=== PATIENT | female | born 1945 | race Caucasian/White ===

== ENCOUNTER 2017-07-25 17:00 | Emergency (ER) | payer MEDICARE, BC ==
--- NOTE | 2017-07-25 17:40 | EDM.PDOCBH ---
<Fox Cohen - Last Filed: 07/25/17 17:51> ED HPI GENERAL MEDICAL PROBLEM - General Chief Complaint: Gastrointestinal Problem Stated Complaint: SENT FROM CLINIC Time Seen by Provider: 07/25/17 17:30 Source of Information: Reports: Family, Provider History Limitations: Reports: Altered Mental Status (Chronic dementia, confusion ) - History of Present Illness INITIAL COMMENTS - FREE TEXT/NARRATIVE: 72-year-old female suffering from chronic dementia, worsening confusion and agitation was in the clinic when she became very angry at her , was uncooperative and her physician felt she was a danger to herself or her family. He sent her over to the emergency room to get her assessed physically to hopefully get her admitted to a senior behavioral unit for stabilization. The patient herself is now calmed down, is very cooperative but communicates with short bursts of attention, frequently changing the subject and obviously having a hard time staying on task. Onset: Unknown/Unsure Severity: Moderate - Related Data Allergies Allergy/AdvReac Type Severity Reaction Status Date / Time neomycin [Neomycin] Allergy Rash Verified 01/31/16 21:41 niacin Allergy Other Verified 07/25/17 17:25 shellfish derived Allergy Hives Verified 01/31/16 21:41 cholestyramine AdvReac Nausea Verified 01/31/16 21:41 [Cholestyramine] prednisone AdvReac Hallucinati Verified 01/31/16 21:41 ons [id number] Reductase AdvReac Muscle Verified 01/31/16 21:41 Inhibitor Aches COCAINE Allergy Other Uncoded 07/25/17 17:25 Home Meds: Home Meds Aspirin [Ecotrin] 325 mg PO BEDTIME 10/20/13 [History] Clopidogrel Bisulfate [Clopidogrel] 75 mg PO QAM 10/20/13 [History] Isosorbide Mononitrate [Imdur] 30 mg PO QAM 10/20/13 [History] Metoprolol Tartrate [Lopressor] 25 mg PO BID 10/20/13 [History] Multivitamin with Minerals [Multiple Vitamin] 1 tab PO DAILY 10/20/13 [History] Nitroglycerin [Nitrostat] 0.4 mg SL ASDIRECTED PRN 10/20/13 [History] Pantoprazole Sodium 40 mg PO BEDTIME 10/20/13 [History] amLODIPine Besylate [Amlodipine Besylate] 5 mg PO QAM 10/20/13 [History] *Chlorphenniramine 4 mg PO ASDIRECTED PRN 07/25/17 [History] Cholecalciferol (Vitamin D3) [Vitamin D] 1,000 units PO ASDIRECTED 07/25/17 [ History] Donepezil [Aricept] 5 mg PO BID 07/25/17 [History] Hydrocodone/Acetaminophen [[place] 5-325] 0.5 mg PO ASDIRECTED PRN 07/25/17 [ History] Past Medical History HEENT History: Reports: Impaired Vision Cardiovascular History: Reports: Angina, CAD, High Cholesterol, Hypertension, Stents Musculoskeletal History: Reports: Arthritis, Other (See Below) Other Musculoskeletal History: shoulder pain Neurological History: Reports: Other (See Below) Other Neuro History: "memory going" - Past Surgical History Cardiovascular Surgical History: Reports: Coronary Artery Stent Female Surgical History: Reports: Tubal Ligation Musculoskeletal Surgical History: Reports: Shoulder Surgery Social & Family History - Tobacco Use Smoking Status *Q: Former Smoker Years of Tobacco use: 50 Packs/Tins Daily: 1 Used Tobacco, but Quit: Yes Month Tobacco Last Used: 2.5 years Second Hand Smoke Exposure: No - Alcohol Use Days Per Week of Alcohol Use: 0 - Recreational Drug Use Recreational Drug Use: No ED ROS GENERAL - Review of Systems Review Of Systems: Unable To Obtain ED EXAM, BEHAVIORAL HEALTH - Physical Exam Exam: See Below Exam Limited By: No Limitations General Appearance: Alert, No Apparent Distress Eye Exam: Bilateral Eye: EOMI Respiratory/Chest: No Respiratory Distress, Lungs Clear Cardiovascular: Regular Rate, Rhythm GI/Abdominal: Soft, Non-Tender Extremities: Other (Patient has a few excoriations and bruises on the backs of her hands, otherwise no integumentary injuries or findings) Neurological: Alert, Normal Mood/Affect Psychiatric: Alert, Normal Affect, Normal Mood. No: Restless, Tearful, Agitated COURSE, BEHAVIORAL HEALTH COMP - Course Vital Signs: Last Vital Signs Temp 35.6 C 07/25/17 19:04 Pulse 60 07/25/17 19:04 Resp 16 07/25/17 19:04 BP 157/60 H 07/25/17 19:04 Pulse Ox 97 07/25/17 19:04 Orders, Labs, Meds: Active Orders 24 hr Category Date Time Status Head wo Cont [CT] Stat Exams 07/25/17 19:43 Taken CULTURE URINE [RM] Stat Lab 07/25/17 18:54 Received Sodium Chloride 0.9% [Normal Saline] 1,000 ml Med 07/25/17 19:00 Active IV ASDIRECTED Medication Orders Sodium Chloride (Normal Saline) 1,000 mls @ 999 mls/hr IV ASDIRECTED MATEO Last Admin: 07/25/17 19:01 Dose: 999 mls/hr Laboratory Tests 07/25/17 07/25/17 07/25/17 Range/Units 17:45 17:45 18:00 WBC 8.1 (4.5-11.0) K/uL RBC 3.95 (3.30-5.50) M/uL Hgb 11.8 L (12.0-15.0) g/dL Hct 36.8 (36.0-48.0) % MCV 93 (80-98) fL MCH 30 (27-31) pg MCHC 32 (32-36) % Plt Count 314 (150-400) K/uL Neut % (Auto) 64 (36-66) % Lymph % (Auto) 26 (24-44) % [place] % (Auto) 8 H (2-6) % Eos % (Auto) 2 (2-4) % Baso % (Auto) 1 (0-1) % Sodium 141 (140-148) mmol/L Potassium 4.2 (3.6-5.2) mmol/L Chloride 104 (100-108) mmol/L Carbon Dioxide 31 (21-32) mmol/L Anion Gap 6.2 (5.0-14.0) mmol/L BUN 19 H (7-18) mg/dL Creatinine 1.2 H (0.6-1.0) mg/dL Est Cr Clr Drug Dosing 37.01 mL/min Estimated GFR (MDRD) 44 L (>60) Glucose 103 (74-106) mg/dL Calcium 9.2 (8.5-10.1) mg/dL Total Bilirubin 0.2 (0.2-1.0) mg/dL AST 17 (15-37) U/L ALT 22 (12-78) U/L Alkaline Phosphatase 97 (46-116) U/L Total Protein 7.5 (6.4-8.2) g/dL Albumin 3.8 (3.4-5.0) g/dL Globulin 3.7 H (2.3-3.5) g/dL Albumin/Globulin Ratio 1.0 L (1.2-2.2) TSH, Ultra Sensitive 1.157 (0.358-3.740) uIU/mL Urine Color Yellow Urine Appearance Cloudy Urine pH 6.0 (4.5-8.0) Ur Specific [place] 1.020 (1.008-1.030) Urine Protein Negative (NEGATIVE) mg/dL Urine Glucose (UA) Normal (NEGATIVE) mg/dL Urine Ketones Negative (NEGATIVE) mg/dL Urine Occult Blood Negative (NEGATIVE) Urine Nitrite Negative (NEGATIVE) Urine Bilirubin Negative (NEGATIVE) Urine Urobilinogen Normal (NORMAL) mg/dL Ur Leukocyte Esterase Large (NEGATIVE) Urine RBC 0-5 (0-5) Urine WBC 10-20 H (0-5) Ur Epithelial Cells Moderate Amorphous Sediment Few Urine Bacteria Few Urine Mucus Not seen Medications Generic Name Dose Route Start Last Admin Trade Name Freq PRN Reason Stop Dose Admin Sodium Chloride 1,000 mls @ 999 mls/hr 07/25/17 19:00 07/25/17 19:01 Normal Saline IV 999 mls/hr ASDIRECTED MATEO Administration Discontinued Medications Generic Name Dose Route Start Last Admin Trade Name Freq PRN Reason Stop Dose Admin Ceftriaxone Sodium 1 gm/ 50 mls @ 100 mls/hr 07/25/17 18:46 07/25/17 19:02 Sodium Chloride IV 07/25/17 19:15 100 mls/hr ONETIME ONE Administration Re-Assessment/Re-Exam: CBC, CMP, TSH and UA were obtained. Departure - Departure Disposition: DC/Tfer to [facility]Unit [facility] Clinical Impression: UTI (urinary tract infection), Chronic dementia with behavioral disturbance - Discharge Information Referrals: Fox Cooper MD [Primary Care Provider] - Forms: ED Department Discharge Care Plan Goals: pt will be trans[facility] the [facility]. - My Orders Last 24 Hours: My Active Orders 07/25/17 18:54 CULTURE URINE [RM] Stat 07/25/17 19:00 Sodium Chloride 0.9% [Normal Saline] 1,000 ml IV ASDIRECTED 07/25/17 19:43 Head wo Cont [CT] Stat - Assessment/Plan Last 24 Hours: My Active Orders 07/25/17 18:54 CULTURE URINE [RM] Stat 07/25/17 19:00 Sodium Chloride 0.9% [Normal Saline] 1,000 ml IV ASDIRECTED 07/25/17 19:43 Head wo Cont [CT] Stat <Martha Mann - Last Filed: 07/25/17 22:29> COURSE, BEHAVIORAL HEALTH COMP - Course Medical Clearance: 07/25/17 22:09 pt has a history of chronic dementia and has been seen By Dr Hunt many times. She is on aricept. She had a Cat scan of the head which showed marked volume loss and dilated ventricles. She has been cared for at home but this has been an increased problem. 07/25/17 22:18 Departure - Departure Time of Disposition: 22:28 Condition: Fair
[2017-07-25] MEDS ORDERED: cefTRIAXone 1 GM in Sodium Chloride 0.9% 50 ML IV ONE (18:46)
[2017-07-25] MEDS ORDERED: Sodium Chloride 0.9% 1,000 ML IV SCH (19:00)
[2017-07-25 22:53] VITALS: BP 97/74
== END 2017-07-25 23:45 ==
LOC: JP.ED 17:00
DX: N39.0 Urinary tract infection, site not specified (principal); F03.91 Unspecified dementia, unspecified severity, with behavioral disturbance; I10 Essential (primary) hypertension; E78.00 Pure hypercholesterolemia, unspecified; Z88.1 Allergy status to other antibiotic agents; Z88.8 Allergy status to other drugs, medicaments and biological substances; Z88.5 Allergy status to narcotic agent; Z91.013 Allergy to seafood; Z79.82 Long term (current) use of aspirin; Z87.891 Personal history of nicotine dependence
CPT/HCPCS: 36415; 70450; 80053; 81001; 84443; 85025; 87086; 96365; 99285; J0696; J7040; J7050; 99284

== ENCOUNTER 2019-02-28 12:30 | Emergency (ER) | payer MEDICARE, BC ==
[2019-02-28] MEDS ORDERED: Sodium Chloride 0.9% 10 ML Syringe FLUSH PRN (12:54)
--- NOTE | 2019-02-28 12:59 | EDM.PDOC ---
ED HPI GENERAL MEDICAL PROBLEM - General Chief Complaint: Neurological Problem Stated Complaint: [facility] Time Seen by Provider: 02/28/19 12:52 Source of Information: Reports: Patient, EMS - History of Present Illness INITIAL COMMENTS - FREE TEXT/NARRATIVE: patient with dementia Comes in [facility] for confusion She was in the shower, and per had a near syncopal episode Tried to get her up, she almost fell down again. Due to dementia, difficult to assess her neurologically. She isn't oriented to place or time. Onset: Today Location: Reports: Generalized Denies Pain Score (Numeric/FACES): 0 - Related Data Allergies Allergy/AdvReac Type Severity Reaction Status Date / Time cocaine Allergy Other Verified 02/28/19 14:46 neomycin [Neomycin] Allergy Rash Verified 02/28/19 14:46 niacin Allergy Other Verified 02/28/19 14:46 shellfish derived Allergy Hives Verified 02/28/19 14:46 cholestyramine AdvReac Nausea Verified 02/28/19 14:46 [Cholestyramine] prednisone AdvReac Hallucinati Verified 02/28/19 14:46 ons [id number]-Ggm Reductase AdvReac Muscle Verified 02/28/19 14:46 Inhibitor Aches Home Meds: Home Meds Clopidogrel Bisulfate [Clopidogrel] 75 mg PO QAM 10/20/13 [History] Isosorbide Mononitrate [Imdur] 30 mg PO QAM 10/20/13 [History] Metoprolol Tartrate [Lopressor] 25 mg PO BID 10/20/13 [History] Multivitamin with Minerals [Multiple Vitamin] 1 tab PO DAILY 10/20/13 [History] Nitroglycerin [Nitrostat] 0.4 mg SL ASDIRECTED PRN 10/20/13 [History] Pantoprazole Sodium 40 mg PO BEDTIME 10/20/13 [History] amLODIPine Besylate [Amlodipine Besylate] 5 mg PO QAM 10/20/13 [History] *Chlorphenniramine 4 mg PO ASDIRECTED PRN 07/25/17 [History] Cholecalciferol (Vitamin D3) [Vitamin D] 1,000 units PO ASDIRECTED 07/25/17 [ History] Donepezil [Aricept] 5 mg PO BID 07/25/17 [History] Aspirin [Children's Aspirin] 1 tab PO DAILY 02/18/18 [History] Memantine HCl 1 tab PO BID 02/18/18 [History] Past Medical History HEENT History: Reports: Cataract, Glaucoma, Impaired Vision Cardiovascular History: Reports: Angina, CAD, High Cholesterol, Hypertension, Stents Musculoskeletal History: Reports: Arthritis, Other (See Below) Other Musculoskeletal History: shoulder pain Neurological History: Reports: Other (See Below) Other Neuro History: Dementia Other Psychiatric History: COGNITIVE IMPAIRMENT, HYPERKINESIS - Past Surgical History HEENT Surgical History: Reports: Cataract Surgery Cardiovascular Surgical History: Reports: Coronary Artery Stent Female Surgical History: Reports: Tubal Ligation Musculoskeletal Surgical History: Reports: Shoulder Surgery ED ROS GENERAL - Review of Systems Review Of Systems: Unable To Obtain (she has dementia) ED EXAM, GENERAL - Physical Exam Exam: See Below Exam Limited By: Other (confusion, dementia) General Appearance: Alert Eye Exam: Bilateral Eye: EOMI, PERRL Ears: Normal External Exam, Normal Canal Ear Exam: Bilateral Ear: Other (pupils are pinpoint) Nose: Normal Inspection Throat/Mouth: Normal Inspection, Normal Lips Neck: Normal Inspection, Supple, Non-Tender, Full Range of Motion Respiratory/Chest: No Respiratory Distress, Lungs Clear Cardiovascular: Systolic Murmur GI/Abdominal: Normal Bowel Sounds, Soft, Non-Tender Extremities: Normal Inspection, Normal Range of Motion Neurological: Disoriented, Slow to Respond, Other ( states she is slurring her speech more than normal) Skin Exam: Warm, Dry, Intact Course - Vital Signs Last Recorded V/S: Last Vital Signs Temp 96.2 F 02/28/19 12:57 Pulse 55 L 02/28/19 12:57 Resp 16 02/28/19 12:57 BP 127/61 02/28/19 12:57 Pulse Ox 98 02/28/19 12:57 - Orders/Labs/Meds Orders: Active Orders 24 hr Category Date Time Status EKG Documentation Completion [RC] ASDIRECTED Care 02/28/19 12:59 Active Peripheral IV Care [RC] . DIRECTED Care 02/28/19 12:54 Active Peripheral IV Insertion Adult [OM.PC] Stat Oth 02/28/19 12:54 Ordered EKG 12 Lead [EK] Routine Ther 02/28/19 12:58 Ordered Labs: Laboratory Tests 02/28/19 02/28/19 02/28/19 Range/Units 13:00 13:00 14:44 WBC 8.1 (4.5-11.0) K/uL RBC 3.65 (3.30-5.50) M/uL Hgb 10.7 L (12.0-15.0) g/dL Hct 34.5 L (36.0-48.0) % MCV 95 (80-98) fL MCH 29 (27-31) pg MCHC 31 L (32-36) % Plt Count 269 (150-400) K/uL Neut % (Auto) 68 H (36-66) % Lymph % (Auto) 21 L (24-44) % [place] % (Auto) 8 H (2-6) % Eos % (Auto) 3 (2-4) % Baso % (Auto) 1 (0-1) % Sodium 141 (140-148) mmol/L Potassium 4.1 (3.6-5.2) mmol/L Chloride 105 (100-108) mmol/L Carbon Dioxide 28 (21-32) mmol/L Anion Gap 8.5 (5.0-14.0) mmol/L BUN 21 H (7-18) mg/dL Creatinine 1.6 H (0.6-1.0) mg/dL Est Cr Clr Drug Dosing TNP Estimated GFR (MDRD) 31 L (>60) Glucose 118 H (74-106) mg/dL Calcium 9.2 (8.5-10.1) mg/dL Total Bilirubin 0.2 (0.2-1.0) mg/dL AST 17 (15-37) U/L ALT 23 (12-78) U/L Alkaline Phosphatase 113 (46-116) U/L Total Protein 7.2 (6.4-8.2) g/dL Albumin 3.2 L (3.4-5.0) g/dL Globulin 4.0 H (2.3-3.5) g/dL Albumin/Globulin Ratio 0.8 L (1.2-2.2) Urine Color Yellow Urine Appearance Clear Urine pH 5.0 (4.5-8.0) Ur Specific [place] [address] 1.015 (1.008-1.030) Urine Protein Negative (NEGATIVE) mg/dL Urine Glucose (UA) Normal (NEGATIVE) mg/dL Urine Ketones Negative (NEGATIVE) mg/dL Urine Occult Blood Negative (NEGATIVE) Urine Nitrite Negative (NEGATIVE) Urine Bilirubin Negative (NEGATIVE) Urine Urobilinogen Normal (NORMAL) mg/dL Ur Leukocyte Esterase Moderate (NEGATIVE) Urine RBC Not seen (0-5) Urine WBC 30-40 H (0-5) Ur Epithelial Cells Moderate Amorphous Sediment Few Urine Bacteria Few Urine Mucus Few Meds: Medications Discontinued Medications Generic Name Dose Route Start Last Admin Trade Name Freq PRN Reason Stop Dose Admin Acetaminophen 1,000 mg 02/28/19 13:04 Tylenol Extra Strength PO Q12H PRN Pain Sodium Chloride 10 ml 02/28/19 12:54 Saline Flush FLUSH ASDIRECTED PRN Keep Vein Open Trimethoprim/Sulfamethoxazole 1 tab 02/28/19 14:59 02/28/19 15:10 Septra Ds PO 02/28/19 15:00 1 tab ONETIME ONE Administration - Re-Assessments/Exams Free Text/Narrative Re-Assessment/Exam: 02/28/19 17:32 reviewed labs, ct Will treat for UTI Departure - Departure Time of Disposition: 14:59 Disposition: Home, Self-Care 01 Condition: Fair Clinical Impression: Cystitis Clinical Impression: (Ruled Out): Acute cyclitis - Discharge Information *PRESCRIPTION DRUG MONITORING PROGRAM REVIEWED*: Not Applicable *COPY OF PRESCRIPTION DRUG MONITORING REPORT IN PATIENT SHIRA: Not Applicable Instructions: Altered Mental Status, Urinary Tract Infection, Adult, Easy-to- Read Referrals: Fox Cooper MD [Primary Care Provider] - Forms: ED Department Discharge Additional Instructions: Keep hydrated Bactrim (antibiotic 2 times daily) Follow up with primary care this week Return with worsening of symptoms Call with questions. - Problem List & Annotations (1) Cystitis SNOMED Code(s): 99179993 Code(s): N30.90 - CYSTITIS, UNSPECIFIED WITHOUT HEMATURIA Status: Acute Priority: Medium - My Orders Last 24 Hours: My Active Orders 02/28/19 12:54 Peripheral IV Care [RC] . DIRECTED Peripheral IV Insertion Adult [OM.PC] Stat 02/28/19 12:58 EKG 12 Lead [EK] Routine 02/28/19 12:59 EKG Documentation Completion [RC] ASDIRECTED - Assessment/Plan Last 24 Hours: My Active Orders 02/28/19 12:54 Peripheral IV Care [RC] . DIRECTED Peripheral IV Insertion Adult [OM.PC] Stat 02/28/19 12:58 EKG 12 Lead [EK] Routine 02/28/19 12:59 EKG Documentation Completion [RC] ASDIRECTED
[2019-02-28] MEDS ORDERED: Acetaminophen 500 MG Tab PO PRN (13:04)
[2019-02-28 13:06] VITALS: BP 127/61; PULSE 55
--- NOTE | 2019-02-28 13:50 | CRLCT ---
INDICATION: Slurred speech. Confusion. TECHNIQUE: Head CT without contrast. COMPARISON: 07/25/2017. FINDINGS: CSF spaces: Within normal limits for age. Brain parenchyma and extra-axial spaces: There is diffuse cerebral atrophy. There are nonspecific low attenuation white matter changes consistent with chronic microvascular disease. No sign of mass, hemorrhage, or midline shift. Skull base and calvarium: The visualized paranasal sinuses and mastoid air cells demonstrate no acute or significant findings. The visualized orbits are grossly unremarkable. No skull fractures. IMPRESSION: Stable age-related changes.No acute abnormality and no change from the prior exam. Dictated by Norris Munoz MD @ 02/28/2019 1:49:01 PM Please note that all CT scans at this facility use dose modulation, iterative reconstruction, and/or weight-based dosing when appropriate to reduce radiation dose to as low as reasonably achievable. Dictated by: Norris Munoz MD @ 02/28/2019 13:49:06 (Electronically Signed)
[2019-02-28] MEDS ORDERED: Sulfamethoxazole/Trimethoprim 800-160 MG Tab PO ONE (14:59)
== END 2019-02-28 15:13 | disposition home or self-care (01) ==
LOC: JP.ED 12:30
DX: N30.90 Cystitis, unspecified without hematuria (principal); F03.90 Unspecified dementia, unspecified severity, without behavioral disturbance, psychotic disturbance, mood disturbance, and anxiety; R41.0 Disorientation, unspecified; I25.10 Atherosclerotic heart disease of native coronary artery without angina pectoris; I10 Essential (primary) hypertension; M19.90 Unspecified osteoarthritis, unspecified site; Z88.8 Allergy status to other drugs, medicaments and biological substances; Z88.1 Allergy status to other antibiotic agents; Z91.013 Allergy to seafood; Z79.02 Long term (current) use of antithrombotics/antiplatelets; Z79.811 Long term (current) use of aromatase inhibitors; Z79.899 Other long term (current) drug therapy; Z79.82 Long term (current) use of aspirin; Z79.891 Long term (current) use of opiate analgesic; Z79.84 Long term (current) use of oral hypoglycemic drugs
CPT/HCPCS: 36415; 70450; 80053; 81001; 85025; 87086; 93005; 99284; A9270

== ENCOUNTER 2019-06-24 10:38 | Emergency (ER) | payer MEDICARE, BC ==
[2019-06-24 11:05] VITALS: BP 118/53; PULSE 56
[2019-06-24] MEDS ORDERED: Sodium Chloride 0.9% 1,000 ML IV SCH ×2 (11:15→13:30)
--- NOTE | 2019-06-24 11:20 | EDM.PDOC ---
ED HPI GENERAL MEDICAL PROBLEM - General Chief Complaint: Neurological Problem Stated Complaint: MEDICAL VIA NORTH Time Seen by Provider: 06/24/19 11:14 Source of Information: Reports: Patient History Limitations: Reports: No Limitations - History of Present Illness INITIAL COMMENTS - FREE TEXT/NARRATIVE: pt had an episode this morning of not responding for about 5 minutes. She has done that twice in the past and each time she had a UTI. The most recent one was 1 month ago. She has been off of antibiotics for 2 weeks at this point. Onset: Today, Sudden Duration: Hour(s): Location: Reports: Generalized Associated Symptoms: Reports: Other (pt did have a episode of diarrhea lst nite after they went out to eat. ) - Related Data Allergies Allergy/AdvReac Type Severity Reaction Status Date / Time cocaine Allergy Other Verified 06/24/19 10:45 neomycin [Neomycin] Allergy Rash Verified 06/24/19 10:45 niacin Allergy Other Verified 06/24/19 10:45 shellfish derived Allergy Hives Verified 06/24/19 10:45 cholestyramine AdvReac Nausea Verified 06/24/19 10:45 [Cholestyramine] prednisone AdvReac Hallucinati Verified 06/24/19 10:45 ons Cgusosj-[id number]-Mlf Reductase AdvReac Muscle Verified 06/24/19 10:45 Inhibitor Aches Home Meds: Home Meds Clopidogrel Bisulfate [Clopidogrel] 75 mg PO QAM 10/20/13 [History] Isosorbide Mononitrate [Imdur] 30 mg PO QAM 10/20/13 [History] Metoprolol Tartrate [Lopressor] 25 mg PO BID 10/20/13 [History] Multivitamin with Minerals [Multiple Vitamin] 1 tab PO DAILY 10/20/13 [History] Nitroglycerin [Nitrostat] 0.4 mg SL ASDIRECTED PRN 10/20/13 [History] Pantoprazole Sodium 40 mg PO BEDTIME 10/20/13 [History] amLODIPine Besylate [Amlodipine Besylate] 5 mg PO QAM 10/20/13 [History] *Chlorphenniramine 4 mg PO ASDIRECTED PRN 07/25/17 [History] Cholecalciferol (Vitamin D3) [Vitamin D] 1,000 units PO ASDIRECTED 07/25/17 [ History] Donepezil [Aricept] 10 mg PO BID 07/25/17 [History] Aspirin [Children's Aspirin] 1 tab PO DAILY 02/18/18 [History] Memantine HCl 1 tab PO BID 02/18/18 [History] Cyanocobalamin (Vitamin B-12) [B-12] 1,000 mcg PO DAILY 06/24/19 [History] QUEtiapine [SEROquel] 12.5 mg PO BEDTIME 06/24/19 [History] Past Medical History HEENT History: Reports: Cataract, Glaucoma, Impaired Vision Cardiovascular History: Reports: Angina, CAD, High Cholesterol, Hypertension, Stents Genitourinary History: Reports: UTI, Recurrent 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: Musculoskeletal History: Reports: Arthritis, Other (See Below) Other Musculoskeletal History: shoulder pain Neurological History: Reports: Other (See Below) Other Neuro History: Dementia Other Psychiatric History: COGNITIVE IMPAIRMENT, HYPERKINESIS - Past Surgical History Head Surgeries/Procedures: Reports: None HEENT Surgical History: Reports: Cataract Surgery Cardiovascular Surgical History: Reports: Coronary Artery Stent Female Surgical History: Reports: Tubal Ligation Neurological Surgical History: Reports: None Musculoskeletal Surgical History: Reports: Shoulder Surgery Dermatological Surgical History: Reports: None Social & Family History - Tobacco Use Smoking Status *Q: Former Smoker Used Tobacco, but Quit: Yes Month/Year Tobacco Last Used: 2008 Second Hand Smoke Exposure: No - Caffeine Use Caffeine Use: Reports: Soda - Recreational Drug Use Recreational Drug Use: No ED ROS GENERAL - Review of Systems Review Of Systems: See Below Constitutional: Reports: Weakness, Other ( pt was unresponsive for about 5 minutes. ) HEENT: Reports: No Symptoms Respiratory: Reports: No Symptoms Cardiovascular: Reports: No Symptoms Endocrine: Reports: No Symptoms GI/Abdominal: Reports: No Symptoms : Reports: No Symptoms Musculoskeletal: Reports: No Symptoms Skin: Reports: No Symptoms Neurological: Reports: Syncope, Other ( she was in the bathroom and she went to stand up and she got weak legged. Her was ble to sit her in a chair and she became unresponsive. ) Psychiatric: Reports: No Symptoms ED EXAM, NEURO - Physical Exam Exam: See Below Text/Narrative:: pt arrived feeling weak and shakey in her legs still but otherwise she was responding as usual. Exam Limited By: No Limitations General Appearance: Alert, No Apparent Distress, Anxious, Other (pupils equal and reactive. ) Ears: Normal TMs Nose: Normal Inspection Throat/Mouth: Normal Inspection Head Exam: Atraumatic Neck: Normal Inspection Respiratory/Chest: No Respiratory Distress Cardiovascular: Regular Rate, Rhythm GI/Abdominal: Soft, Non-Tender (Female) Exam: Deferred Neurological: Alert, Other (pt is confused she normally has dementia. ) Back Exam: Normal Inspection Extremities: Normal Inspection Psychiatric: Normal Affect Course - Vital Signs Last Recorded V/S: Last Vital Signs Temp 35.7 C 06/24/19 13:10 Pulse 56 L 06/24/19 13:10 Resp 13 06/24/19 13:10 BP 118/53 L 06/24/19 13:10 Pulse Ox 94 L 06/24/19 13:10 Orthostatic Blood Pressure [ 133/83 Standing] Orthostatic Blood Pressure [ 128/54 Sitting] Orthostatic Blood Pressure [ 123/47 Supine] - Orders/Labs/Meds Orders: Active Orders 24 hr Category Date Time Status EKG Documentation Completion [RC] ASDIRECTED Care 06/24/19 11:46 Active Orthostatic Vital Signs [RC] ASDIRECTED Care 06/24/19 11:03 Active CULTURE URINE [RM] Stat Lab 06/24/19 11:56 Results EKG 12 Lead [EK] Routine Ther 06/24/19 11:46 Ordered Labs: Laboratory Tests 06/24/19 06/24/19 06/24/19 Range/Units 11:12 11:12 11:28 WBC 7.6 (4.5-11.0) K/uL RBC 3.46 (3.30-5.50) M/uL Hgb 10.4 L (12.0-15.0) g/dL Hct 32.4 L (36.0-48.0) % MCV 94 (80-98) fL MCH 30 (27-31) pg MCHC 32 (32-36) % Plt Count 177 (150-400) K/uL Neut % (Auto) 57 (36-66) % Lymph % (Auto) 26 (24-44) % [place] % (Auto) 8 H (2-6) % Eos % (Auto) 8 H (2-4) % Baso % (Auto) 1 (0-1) % Sodium 141 (140-148) mmol/L Potassium 3.9 (3.6-5.2) mmol/L Chloride 106 (100-108) mmol/L Carbon Dioxide 22 (21-32) mmol/L Anion Gap 13.5 (5.0-14.0) mmol/L BUN 32 H D (7-18) mg/dL Creatinine 1.8 H (0.6-1.0) mg/dL Est Cr Clr Drug Dosing 23.93 mL/min Estimated GFR (MDRD) 27 L (>60) Glucose 141 H (74-106) mg/dL Calcium 8.7 (8.5-10.1) mg/dL Total Bilirubin 0.2 (0.2-1.0) mg/dL AST 18 (15-37) U/L ALT 20 (12-78) U/L Alkaline Phosphatase 117 H (46-116) U/L Total Protein 7.2 (6.4-8.2) g/dL Albumin 3.2 L (3.4-5.0) g/dL Globulin 4.0 H (2.3-3.5) g/dL Albumin/Globulin Ratio 0.8 L (1.2-2.2) Urine Color Yellow (YELLOW) Urine Appearance Slightly cloudy A (CLEAR) Urine pH 5.5 (5.0-8.0) Ur Specific [place] >= 1.030 (1.008-1.030) Urine Protein 30 H (NEGATIVE) mg/dL Urine Glucose (UA) Negative (NEGATIVE) mg/dL Urine Ketones Negative (NEGATIVE) mg/dL Urine Occult Blood Small H (NEGATIVE) Urine Nitrite Negative (NEGATIVE) Urine Bilirubin Negative (NEGATIVE) Urine Urobilinogen 0.2 (0.2-1.0) EU/dL Ur Leukocyte Esterase Negative (NEGATIVE) Urine RBC 0-5 (0-5) Urine WBC 5-10 H (0-5) Ur Epithelial Cells Not seen Amorphous Sediment Not seen Urine Bacteria Not seen Urine Mucus Many Meds: Medications Discontinued Medications Generic Name Dose Route Start Last Admin Trade Name Freq PRN Reason Stop Dose Admin Sodium Chloride 1,000 mls @ 999 mls/hr 06/24/19 11:15 06/24/19 11:35 Normal Saline IV 999 mls/hr ASDIRECTED MATEO Administration Sodium Chloride 1,000 mls @ 999 mls/hr 06/24/19 13:30 06/24/19 13:38 Normal Saline IV 999 mls/hr ASDIRECTED MATEO Administration - Re-Assessments/Exams Free Text/Narrative Re-Assessment/Exam: 06/24/19 11:42 pt has a normal wbc. Her urine is very concentrated but does not have alot of wbcs. She also does not have alot of bacteria. She will be cultured. Iv fluids were started and she will be given 2 liters of fluid. she did have a ekg which was free of acute changes. 06/24/19 12:26 06/24/19 13:22 cat scan of the head did not show any acute findings. Departure - Departure Time of Disposition: 14:00 Disposition: Home, Self-Care 01 Condition: Fair Clinical Impression: Dehydration, Dementia, Syncope - Discharge Information Instructions: Dementia, [id number], Dehydration, Elderly, [id number] Referrals: PCP,None [Primary Care Provider] - Forms: ED Department Discharge Care Plan Goals: discharge home, push fluids, will notify of the urine culture. rtc if any further problems. - My Orders Last 24 Hours: My Active Orders 06/24/19 11:03 Orthostatic Vital Signs [RC] ASDIRECTED 06/24/19 11:46 EKG Documentation Completion [RC] ASDIRECTED EKG 12 Lead [EK] Routine 06/24/19 11:56 CULTURE URINE [RM] Stat - Assessment/Plan Last 24 Hours: My Active Orders 06/24/19 11:03 Orthostatic Vital Signs [RC] ASDIRECTED 06/24/19 11:46 EKG Documentation Completion [RC] ASDIRECTED EKG 12 Lead [EK] Routine 06/24/19 11:56 CULTURE URINE [RM] Stat
--- NOTE | 2019-06-24 13:12 | CRLCT ---
INDICATION: Syncope. Slurred speech. TECHNIQUE: CT head without IV contrast. COMPARISON: CT head 02/28/2019. FINDINGS: Moderately advanced vascular calcifications stable. No intracranial hemorrhage, edema, or mass effect. Severe confluent diffuse abnormal low-density change throughout the white matter of both cerebral hemispheres and is more prominent than typically seen but likely related to small vessel ischemic disease. Mildly prominent right greater than left dilatation of the lateral ventricles is stable with moderately prominent stable dilatation of the 3rd ventricle. The degree of ventricular dilatation is greater than the degree of atrophy consistent with some stable hydrocephalus. Moderate diffuse cerebral and mild to moderate diffuse cerebellar atrophy. No intracranial hemorrhage, edema, or mass-effect. Few old lacunar infarcts adjacent to the caudate nuclei bilaterally which are stable. Remainder negative. IMPRESSION: Stable head CT with no acute intracranial hemorrhage or mass effect. Chronic stable intracranial findings as described above. Please note that all CT scans at this facility use dose modulation, iterative reconstruction, and/or weight-based dosing when appropriate to reduce radiation dose to as low as reasonably achievable. Dictated by Steve Park MD @ Jun 24 2019 1:09PM Signed by Dr. Steve Park @ Jun 24 2019 1:11PM
== END 2019-06-24 14:50 | disposition home or self-care (01) ==
LOC: JP.ED 10:38
DX: E86.0 Dehydration (principal); R55 Syncope and collapse; F03.90 Unspecified dementia, unspecified severity, without behavioral disturbance, psychotic disturbance, mood disturbance, and anxiety; I10 Essential (primary) hypertension; I25.10 Atherosclerotic heart disease of native coronary artery without angina pectoris; Z88.8 Allergy status to other drugs, medicaments and biological substances; Z91.013 Allergy to seafood; Z88.1 Allergy status to other antibiotic agents; Z95.5 Presence of coronary angioplasty implant and graft; Z79.82 Long term (current) use of aspirin; Z79.899 Other long term (current) drug therapy; Z79.02 Long term (current) use of antithrombotics/antiplatelets; Z87.891 Personal history of nicotine dependence
CPT/HCPCS: 36415; 70450; 80053; 81001; 85025; 87086; 93005; 96360; 96361; 99285; J7030; 93010; 99284

== ENCOUNTER 2019-07-02 14:22 | Emergency (ER) | payer MEDICARE, BC ==
--- NOTE | 2019-07-02 15:03 | EDM.PDOCBH ---
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 He states that he is fearful of her safety as he can no longer take care of her with her progressing dementia first diagnosed in 2017. At this time she denies any suicidal ideation however she is orientated x1 but has no recent memory has no remote memory does not recall where she went to high school does not recall what type of work she is done in the past does not know where she is at. - Related Data Allergies Allergy/AdvReac Type Severity Reaction Status Date / Time baclofen Allergy Confusion Verified 07/03/19 11:24 cocaine Allergy Other Verified 06/24/19 10:45 evolocumab Allergy Confusion Verified 07/03/19 11:24 [From Repatha Pushtronex] neomycin [Neomycin] Allergy Rash Verified 06/24/19 10:45 niacin Allergy Headache Verified 07/03/19 11:24 shellfish derived Allergy Hives Verified 06/24/19 10:45 cholestyramine AdvReac Nausea Verified 06/24/19 10:45 [Cholestyramine] prednisone AdvReac Hallucinati Verified 06/24/19 10:45 ons Oozyefc-Kcf-Dzm Reductase AdvReac Muscle Verified 06/24/19 10:45 Inhibitor Aches Home Meds: Home Meds Clopidogrel Bisulfate [Clopidogrel] 75 mg PO QAM 10/20/13 [History] Isosorbide Mononitrate [Imdur] 30 mg PO QAM 10/20/13 [History] Metoprolol Tartrate [Lopressor] 25 mg PO BID 10/20/13 [History] Multivitamin with Minerals [Multiple Vitamin] 1 tab PO DAILY 10/20/13 [History] Nitroglycerin [Nitrostat] 0.4 mg SL ASDIRECTED PRN 10/20/13 [History] Pantoprazole Sodium 40 mg PO BEDTIME 10/20/13 [History] amLODIPine Besylate [Amlodipine Besylate] 5 mg PO QAM 10/20/13 [History] *Chlorphenniramine 4 mg PO ASDIRECTED PRN 07/25/17 [History] Cholecalciferol (Vitamin D3) [Vitamin D] 1,000 units PO ASDIRECTED 07/25/17 [ History] Donepezil [Aricept] 10 mg PO DAILY 07/25/17 [History] Aspirin [Children's Aspirin] 1 tab PO DAILY 02/18/18 [History] Memantine HCl 1 tab PO BID 02/18/18 [History] Cyanocobalamin (Vitamin B-12) [B-12] 1,000 mcg PO DAILY 06/24/19 [History] QUEtiapine [SEROquel] 12.5 - 25 mg PO BID 06/24/19 [History] Past Medical History HEENT History: Reports: Cataract, Glaucoma, Impaired Vision Cardiovascular History: Reports: Angina, CAD, High Cholesterol, Hypertension, Stents Genitourinary History: Reports: UTI, Recurrent 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: Musculoskeletal History: Reports: Arthritis, Other (See Below) Other Musculoskeletal History: shoulder pain Neurological History: Reports: Other (See Below) Other Neuro History: Dementia Psychiatric History: Reports: Dementia Other Psychiatric History: COGNITIVE IMPAIRMENT, HYPERKINESIS - Infectious Disease History Infectious Disease History: Reports: Chicken Pox - Past Surgical History Head Surgeries/Procedures: Reports: None HEENT Surgical History: Reports: Cataract Surgery Cardiovascular Surgical History: Reports: Coronary Artery Stent Female Surgical History: Reports: Tubal Ligation Neurological Surgical History: Reports: None Musculoskeletal Surgical History: Reports: Shoulder Surgery Dermatological Surgical History: Reports: None Social & Family History - Tobacco Use Smoking Status *Q: Former Smoker Used Tobacco, but Quit: Yes Month/Year Tobacco Last Used: many years go - Caffeine Use Caffeine Use: Reports: Soda - Recreational Drug Use Recreational Drug Use: No ED ROS GENERAL - Review of Systems Review Of Systems: Unable To Obtain Reason Not Obtained: Severe dementia ED EXAM, BEHAVIORAL HEALTH - Physical Exam Exam: See Below Exam Limited By: Physical Impairment General Appearance: Alert, No Apparent Distress Respiratory/Chest: No Respiratory Distress, Lungs Clear, Normal Breath Sounds, No Accessory Muscle Use, Chest Non-Tender Cardiovascular: Regular Rate, Rhythm, No Murmur GI/Abdominal: Soft, Non-Tender Psychiatric: Alert, Suicidal Plan (Per ), Visual Hallucinations (Per she has been hallucinating). No: Oriented, Suicidal Thoughts COURSE, BEHAVIORAL HEALTH COMP - Course Vital Signs: Last Vital Signs Temp 98.0 F 07/03/19 08:55 Pulse 87 07/03/19 08:55 Resp 18 07/03/19 08:55 BP 130/63 07/03/19 08:55 Pulse Ox 95 07/03/19 08:55 Orders, Labs, Meds: Active Orders 24 hr Category Date Time Status CULTURE URINE [RM] Urgent Lab 07/02/19 17:30 Received Laboratory Tests 07/02/19 07/02/19 07/02/19 Range/Units 15:00 15:00 15:00 WBC 6.8 (4.5-11.0) K/uL RBC 3.55 (3.30-5.50) M/uL Hgb 10.2 L (12.0-15.0) g/dL Hct 33.4 L (36.0-48.0) % MCV 94 (80-98) fL MCH 29 (27-31) pg MCHC 31 L (32-36) % Plt Count 260 (150-400) K/uL Neut % (Auto) 66 (36-66) % Lymph % (Auto) 18 L (24-44) % Person % (Auto) 11 H (2-6) % Eos % (Auto) 4 (2-4) % Baso % (Auto) 1 (0-1) % Sodium 140 (140-148) mmol/L Potassium 3.9 (3.6-5.2) mmol/L Chloride 105 (100-108) mmol/L Carbon Dioxide 28 (21-32) mmol/L Anion Gap 7.2 (5.0-14.0) mmol/L BUN 22 H (7-18) mg/dL Creatinine 1.6 H (0.6-1.0) mg/dL Est Cr Clr Drug Dosing 25.85 mL/min Estimated GFR (MDRD) 31 L (>60) Glucose 103 (74-106) mg/dL Calcium 9.0 (8.5-10.1) mg/dL Total Bilirubin 0.2 (0.2-1.0) mg/dL AST 16 (15-37) U/L ALT 20 (12-78) U/L Alkaline Phosphatase 122 H (46-116) U/L Troponin I (0.000-0.056) ng/mL Total Protein 7.3 (6.4-8.2) g/dL Albumin 3.2 L (3.4-5.0) g/dL Globulin 4.1 H (2.3-3.5) g/dL Albumin/Globulin Ratio 0.8 L (1.2-2.2) TSH, Ultra Sensitive (0.358-3.740) uIU/mL Urine Color Yellow (YELLOW) Urine Appearance Clear (CLEAR) Urine pH 6.0 (5.0-8.0) Ur Specific [place] 1.015 (1.008-1.030) Urine Protein Negative (NEGATIVE) mg/dL Urine Glucose (UA) Negative (NEGATIVE) mg/dL Urine Ketones Negative (NEGATIVE) mg/dL Urine Occult Blood Trace-lysed H (NEGATIVE) Urine Nitrite Negative (NEGATIVE) Urine Bilirubin Negative (NEGATIVE) Urine Urobilinogen 0.2 (0.2-1.0) EU/dL Ur Leukocyte Esterase Small H (NEGATIVE) Urine RBC 0-5 (0-5) Urine WBC 40-50 H (0-5) Ur Epithelial Cells Few Amorphous Sediment Not seen Urine Bacteria Many Urine Mucus Not seen Urine Other Urine Opiates Screen (NEGATIVE) Ur Oxycodone Screen (NEGATIVE) Urine Methadone Screen (NEGATIVE) Ur Propoxyphene Screen (NEGATIVE) Ur Barbiturates Screen (NEGATIVE) Ur Tricyclics Screen (NEGATIVE) Ur Phencyclidine Scrn (NEGATIVE) Ur Amphetamine Screen (NEGATIVE) U Methamphetamines Scrn (NEGATIVE) Urine MDMA Screen (NEGATIVE) U Benzodiazepines Scrn (NEGATIVE) U Cocaine Metab Screen (NEGATIVE) U Marijuana (THC) Screen (NEGATIVE) 07/02/19 07/02/19 07/03/19 Range/Units 15:02 23:20 07:39 WBC (4.5-11.0) K/uL RBC (3.30-5.50) M/uL Hgb (12.0-15.0) g/dL Hct (36.0-48.0) % MCV (80-98) fL MCH (27-31) pg MCHC (32-36) % Plt Count (150-400) K/uL Neut % (Auto) (36-66) % Lymph % (Auto) (24-44) % Person % (Auto) (2-6) % Eos % (Auto) (2-4) % Baso % (Auto) (0-1) % Sodium (140-148) mmol/L Potassium (3.6-5.2) mmol/L Chloride (100-108) mmol/L Carbon Dioxide (21-32) mmol/L Anion Gap (5.0-14.0) mmol/L BUN (7-18) mg/dL Creatinine (0.6-1.0) mg/dL Est Cr Clr Drug Dosing mL/min Estimated GFR (MDRD) (>60) Glucose (74-106) mg/dL Calcium (8.5-10.1) mg/dL Total Bilirubin (0.2-1.0) mg/dL AST (15-37) U/L ALT (12-78) U/L Alkaline Phosphatase (46-116) U/L Troponin I < 0.017 (0.000-0.056) ng/mL Total Protein (6.4-8.2) g/dL Albumin (3.4-5.0) g/dL Globulin (2.3-3.5) g/dL Albumin/Globulin Ratio (1.2-2.2) TSH, Ultra Sensitive 1.580 (0.358-3.740) uIU/mL Urine Color (YELLOW) Urine Appearance (CLEAR) Urine pH (5.0-8.0) Ur Specific [place] (1.008-1.030) Urine Protein (NEGATIVE) mg/dL Urine Glucose (UA) (NEGATIVE) mg/dL Urine Ketones (NEGATIVE) mg/dL Urine Occult Blood (NEGATIVE) Urine Nitrite (NEGATIVE) Urine Bilirubin (NEGATIVE) Urine Urobilinogen (0.2-1.0) EU/dL Ur Leukocyte Esterase (NEGATIVE) Urine RBC (0-5) Urine WBC (0-5) Ur Epithelial Cells Amorphous Sediment Urine Bacteria Urine Mucus Urine Other Urine Opiates Screen Negative (NEGATIVE) Ur Oxycodone Screen Negative (NEGATIVE) Urine Methadone Screen Negative (NEGATIVE) Ur Propoxyphene Screen Negative (NEGATIVE) Ur Barbiturates Screen Negative (NEGATIVE) Ur Tricyclics Screen Negative (NEGATIVE) Ur Phencyclidine Scrn Negative (NEGATIVE) Ur Amphetamine Screen Negative (NEGATIVE) U Methamphetamines Scrn Negative (NEGATIVE) Urine MDMA Screen Negative (NEGATIVE) U Benzodiazepines Scrn Negative (NEGATIVE) U Cocaine Metab Screen Negative (NEGATIVE) U Marijuana (THC) Screen Negative (NEGATIVE) Medications Discontinued Medications Generic Name Dose Route Start Last Admin Trade Name Keshav PRN Reason Stop Dose Admin Amlodipine Besylate 5 mg 07/03/19 08:36 07/03/19 08:50 Norvasc PO 07/03/19 08:37 5 mg ONETIME ONE Administration Clopidogrel Bisulfate 75 mg 07/03/19 08:35 07/03/19 08:50 Plavix PO 07/03/19 08:36 75 mg ONETIME ONE Administration Metoprolol Tartrate 25 mg 07/03/19 08:36 07/03/19 08:50 Lopressor PO 07/03/19 08:37 25 mg ONETIME ONE Administration Quetiapine Fumarate 25 mg 07/03/19 08:35 07/03/19 08:50 Seroquel PO 07/03/19 08:36 25 mg ONETIME ONE Administration Departure - Departure Disposition: DC/Tfer to Other 70 Clinical Impression: Chronic dementia with behavioral disturbance - Discharge Information Referrals: oFx Cooper MD [Primary Care Provider] - Forms: ED Department Discharge Care Plan Goals: Patient will be transferred by EMS due to possible behavioral disturbance or agitation, [facility] <Fox Cohen D - Last Filed: 07/03/19 14:47> COURSE, BEHAVIORAL HEALTH COMP - Course Re-Assessment/Re-Exam: 74-year-old female awaiting transfer to an inpatient psychiatric facility. Care was turned over from Dr. Mansfield to Dr. Foster, and ultimately to myself while awaiting transfer. Some additional labs were asked for by the accepting facility including TSH and drug screen which were negative. Patient remained for the most part cooperative, mildly agitated at times but able to be redirected. She was given her morning dose of Seroquel, amlodipine, metoprolol , and Plavix. Patient is now resting quietly, she was accepted to [facility]. EMS transportation will be arranged. Departure - Departure Time of Disposition: 14:40
[2019-07-03] MEDS ORDERED: Metoprolol Tartrate 50 MG Tab PO ONE (08:35)
[2019-07-03] MEDS ORDERED: Clopidogrel 75 MG Tab PO ONE (08:35)
[2019-07-03] MEDS ORDERED: QUEtiapine 25 MG Tab PO ONE (08:35)
[2019-07-03] MEDS ORDERED: amLODIPine 5 MG Tab PO ONE (08:36)
[2019-07-03] MEDS ORDERED: Metoprolol Tartrate 25 MG Tab PO ONE (08:36)
[2019-07-03 08:51] VITALS: BP 130/63; PULSE 87
== END 2019-07-03 14:15 | disposition other institution (70) ==
LOC: JP.ED 14:22
DX: F03.91 Unspecified dementia, unspecified severity, with behavioral disturbance (principal); I25.119 Atherosclerotic heart disease of native coronary artery with unspecified angina pectoris; I10 Essential (primary) hypertension; E78.00 Pure hypercholesterolemia, unspecified; Z79.02 Long term (current) use of antithrombotics/antiplatelets; Z79.82 Long term (current) use of aspirin; Z79.899 Other long term (current) drug therapy; Z87.891 Personal history of nicotine dependence; Z88.1 Allergy status to other antibiotic agents; Z88.3 Allergy status to other anti-infective agents; Z88.4 Allergy status to anesthetic agent; Z88.6 Allergy status to analgesic agent; Z88.8 Allergy status to other drugs, medicaments and biological substances; Z91.013 Allergy to seafood; Z95.5 Presence of coronary angioplasty implant and graft
CPT/HCPCS: 36415; 80053; 80305; 81001; 84443; 84484; 85025; 87086; 99285; A9270

== ENCOUNTER 2019-08-07 17:32 | Emergency (ER) | payer MEDICARE, BC ==
[2019-08-07 17:47] VITALS: BP 139/50; PULSE 77
--- NOTE | 2019-08-07 18:05 | EDM.PDOC ---
ED HPI GENERAL MEDICAL PROBLEM - General Chief Complaint: Abdominal Pain Stated Complaint: [facility] Time Seen by Provider: 08/07/19 17:55 Source of Information: Reports: EMS, Family, Old Records, RN History Limitations: Reports: Other (patient with severe dementia) - History of Present Illness INITIAL COMMENTS - FREE TEXT/NARRATIVE: 74 yo female arrives from her [facility] due to staff/ noting her holding her stomach. Her says she has done this in the past with UTI's. He also states her stools are loose lately. No fever. No cough. Did have some acetaminophen before arrival. Here via EMS. Onset: Today Onset Date: 08/07/19 Duration: Hour(s): Location: Reports: Abdomen Quality: Reports: Other (unknown) Severity: Mild Improves with: Reports: Other (unknown) Worsens with: Reports: Other (unknown) Context: Reports: Other (see HPI) Associated Symptoms: Reports: No Other Symptoms Treatments DEDENTER: Reports: Acetaminophen - Related Data Allergies Allergy/AdvReac Type Severity Reaction Status Date / Time baclofen Allergy Confusion Verified 08/07/19 17:48 cocaine Allergy Other Verified 08/07/19 17:48 evolocumab Allergy Confusion Verified 08/07/19 17:48 [From Repatha Pushtronex] neomycin [Neomycin] Allergy Rash Verified 08/07/19 17:48 niacin Allergy Headache Verified 08/07/19 17:48 shellfish derived Allergy Hives Verified 08/07/19 17:48 cholestyramine AdvReac Nausea Verified 08/07/19 17:48 [Cholestyramine] prednisone AdvReac Hallucinati Verified 08/07/19 17:48 ons Jefywus-Uak-Peo Reductase AdvReac Muscle Verified 08/07/19 17:48 Inhibitor Aches Home Meds: Home Meds Clopidogrel Bisulfate [Clopidogrel] 75 mg PO QAM 10/20/13 [History] Isosorbide Mononitrate [Imdur] 30 mg PO QAM 10/20/13 [History] Metoprolol Tartrate [Lopressor] 25 mg PO BID 10/20/13 [History] Multivitamin with Minerals [Multiple Vitamin] 1 tab PO DAILY 10/20/13 [History] Nitroglycerin [Nitrostat] 0.4 mg SL ASDIRECTED PRN 10/20/13 [History] Pantoprazole Sodium 40 mg PO BEDTIME 10/20/13 [History] amLODIPine Besylate [Amlodipine Besylate] 5 mg PO QAM 10/20/13 [History] *Chlorphenniramine 4 mg PO ASDIRECTED PRN 07/25/17 [History] Cholecalciferol (Vitamin D3) [Vitamin D] 1,000 units PO ASDIRECTED 07/25/17 [ History] Donepezil [Aricept] 10 mg PO DAILY 07/25/17 [History] Aspirin [Children's Aspirin] 1 tab PO DAILY 02/18/18 [History] Memantine HCl 1 tab PO BID 02/18/18 [History] Cyanocobalamin (Vitamin B-12) [B-12] 1,000 mcg PO DAILY 06/24/19 [History] QUEtiapine [SEROquel] 12.5 - 25 mg PO BID 06/24/19 [History] Past Medical History HEENT History: Reports: Cataract, Glaucoma, Impaired Vision Cardiovascular History: Reports: Angina, CAD, High Cholesterol, Hypertension, Stents Genitourinary History: Reports: UTI, Recurrent [place] History: Reports: Musculoskeletal History: Reports: Arthritis, Other (See Below) Other Musculoskeletal History: shoulder pain Neurological History: Reports: Other (See Below) Other Neuro History: Dementia Psychiatric History: Reports: Dementia Other Psychiatric History: COGNITIVE IMPAIRMENT, HYPERKINESIS - Infectious Disease History Infectious Disease History: Reports: Chicken Pox - Past Surgical History Head Surgeries/Procedures: Reports: None HEENT Surgical History: Reports: Cataract Surgery Cardiovascular Surgical History: Reports: Coronary Artery Stent Female Surgical History: Reports: Tubal Ligation Neurological Surgical History: Reports: None Musculoskeletal Surgical History: Reports: Shoulder Surgery Dermatological Surgical History: Reports: None Social & Family History - Tobacco Use Smoking Status *Q: Never Smoker - Caffeine Use Caffeine Use: Reports: Soda ED ROS GENERAL - Review of Systems Review Of Systems: See Below Constitutional: Reports: No Symptoms HEENT: Reports: No Symptoms Respiratory: Reports: No Symptoms Cardiovascular: Reports: No Symptoms GI/Abdominal: Reports: Abdominal Pain (held her abdomen at [facility]), Diarrhea. Denies: Black Stool, Bloody Stool, Constipation, Distension, Flatus, Hematemesis , Hematochezia, Nausea, Vomiting : Reports: No Symptoms Musculoskeletal: Reports: No Symptoms Skin: Reports: No Symptoms Neurological: Reports: Other (dementia hx) Psychiatric: Reports: No Symptoms ED EXAM, GI/ABD - Physical Exam Exam: See Below Exam Limited By: No Limitations General Appearance: Alert, WD/WN, No Apparent Distress Eyes: Bilateral: Normal Appearance Ears: Normal External Exam, Normal Canal, Hearing Grossly Normal Nose: Normal Inspection, No Blood Throat/Mouth: Normal Inspection, Normal Lips, Normal Oropharynx, Normal Voice, No Airway Compromise Head: Atraumatic, Normocephalic Neck: Normal Inspection Respiratory/Chest: No Respiratory Distress, Lungs Clear, Normal Breath Sounds, No Accessory Muscle Use Cardiovascular: Regular Rate, Rhythm, No Edema GI/Abdominal Exam: Normal Bowel Sounds, Soft, Non-Tender, No Distention. No: Distended, Guarding, Rigid, Rebound, Tender, Abnormal Bowel Sounds, Hernia Back Exam: Normal Inspection. No: CVA Tenderness (R), CVA Tenderness (L) Extremities: Normal Inspection, Normal Range of Motion, Non-Tender, No Pedal Edema Neurological: Alert, CN II-XII Intact, No Motor/Sensory Deficits, Other (severe dementia). No: Oriented, Normal Cognition Psychiatric: Flat Affect Skin Exam: Warm, Dry, Intact, Normal Color, No Rash Course - Vital Signs Last Recorded V/S: Last Vital Signs Temp 36.2 C 08/07/19 17:59 Pulse 77 08/07/19 17:59 Resp 16 08/07/19 17:59 BP 139/50 L 08/07/19 17:59 Pulse Ox 97 08/07/19 17:59 - Orders/Labs/Meds Orders: Active Orders 24 hr Category Date Time Status CULTURE URINE [RM] Stat Lab 08/07/19 18:13 Ordered Labs: Laboratory Tests 08/07/19 Range/Units 17:50 Urine Color Yellow (YELLOW) Urine Appearance Clear (CLEAR) Urine pH 5.5 (5.0-8.0) Ur Specific Majestic 1.020 (1.008-1.030) Urine Protein Negative (NEGATIVE) mg/dL Urine Glucose (UA) Negative (NEGATIVE) mg/dL Urine Ketones Negative (NEGATIVE) mg/dL Urine Occult Blood Negative (NEGATIVE) Urine Nitrite Negative (NEGATIVE) Urine Bilirubin Negative (NEGATIVE) Urine Urobilinogen 0.2 (0.2-1.0) EU/dL Ur Leukocyte Esterase Negative (NEGATIVE) Urine RBC 5-10 H (0-5) Urine WBC 10-20 H (0-5) Ur Epithelial Cells Many Amorphous Sediment Few Urine Bacteria Rare Urine Mucus Rare Meds: Medications Discontinued Medications Generic Name Dose Route Start Last Admin Trade Name Keshav PRN Reason Stop Dose Admin Cephalexin 50 mg 08/07/19 18:15 Keflex PO 08/07/19 18:16 ONETIME ONE Departure - Departure Time of Disposition: 18:17 Disposition: Home, Self-Care 01 Condition: Good Clinical Impression: Cystitis - Discharge Information *PRESCRIPTION DRUG MONITORING PROGRAM REVIEWED*: No *COPY OF PRESCRIPTION DRUG MONITORING REPORT IN PATIENT SHIRA: No Instructions: Urinary Tract Infection, Adult, [id number] Referrals: Fox Cooper MD [Primary Care Provider] - Forms: ED Department Discharge Additional Instructions: Take cephalexin every 8 hrs. F/U with your provider in 3 days to review the culture result. Return as needed. Acetaminophen for pain relief as needed. Sepsis Event Note - Evaluation Sepsis Screening Result: No Definite Risk - Focused Exam Vital Signs: Vital Signs Temp Pulse Resp BP Pulse Ox 08/07/19 17:59 36.2 C 77 16 139/50 L 97 08/07/19 17:46 36.2 C 77 16 139/50 L 97 Date Exam was Performed: 08/07/19 Time Exam was Performed: 18:17 - My Orders Last 24 Hours: My Active Orders 08/07/19 18:13 CULTURE URINE [RM] Stat - Assessment/Plan Last 24 Hours: My Active Orders 08/07/19 18:13 CULTURE URINE [RM] Stat
[2019-08-07] MEDS ORDERED: Cephalexin 250 MG Cap PO ONE (18:15)
== END 2019-08-07 19:20 | disposition home or self-care (01) ==
LOC: JP.ED 17:32
DX: N30.90 Cystitis, unspecified without hematuria (principal); I10 Essential (primary) hypertension; E78.00 Pure hypercholesterolemia, unspecified; I25.10 Atherosclerotic heart disease of native coronary artery without angina pectoris; M19.90 Unspecified osteoarthritis, unspecified site; Z79.02 Long term (current) use of antithrombotics/antiplatelets; Z79.82 Long term (current) use of aspirin; Z79.899 Other long term (current) drug therapy; Z88.8 Allergy status to other drugs, medicaments and biological substances; Z91.013 Allergy to seafood; Z88.1 Allergy status to other antibiotic agents
CPT/HCPCS: 81001; 87086; 99283; 99284